=== PATIENT | female | born 1990 | race Caucasian/White ===

== ENCOUNTER 2018-08-11 21:40 | Emergency (ER) | payer OTHER ==
[~2018-08-11] VITALS: Ht 165.1 cm; Wt 100.0 kg
[2018-08-11] MEDS ORDERED: ZOVI1TAB8 PO (21:46)
[2018-08-11] MEDS ORDERED: LEVO-88 PO (21:47)
[2018-08-11] MEDS ORDERED: LIDOCAINE 1% MDV 20ML VIAL IM ONE (22:15)
[2018-08-11] MEDS ORDERED: ADACEL/BOOSTRIX VACCINE (DIPHTH/PERTUSS/ACELL/TETANUS)0.5ML SYR (90715) IM ONE (22:15)
[2018-08-11 22:58] VITALS: BP 136/81
[2018-08-11] MEDS ORDERED: BACTRIM 160MG/800MG DS TAB PO ONE (23:00)
[2018-08-11] MEDS ORDERED: BACT800T5 PO (23:07)
== END 2018-08-11 23:11 | disposition home or self-care (01) ==
LOC: M ED 21:40
DX: S61.214A Laceration without foreign body of right ring finger without damage to nail, initial encounter (principal); S61.411A Laceration without foreign body of right hand, initial encounter; W22.8XXA Striking against or struck by other objects, initial encounter; Y92.828 Other wilderness area as the place of occurrence of the external cause; Z79.3 Long term (current) use of hormonal contraceptives